=== PATIENT | female | born 1965 | race American Indian/Alaskan Native ===

== ENCOUNTER 2018-07-10 17:04 | Emergency (ER) | payer OTHER ==
--- NOTE | 2018-07-10 17:34 | Emergency Department Report ---
ED Allergic Reaction HPI - General Stated complaint: ALLERGIC REACTION Time Seen by Provider: 07/10/18 17:30 Source: patient Mode of arrival: Ambulatory Limitations: No Limitations - History of Present Illness Initial Comments: Patient is a 53-year-old female that presents emergency room with the complaints of itching and shortness of breath and difficulty swallowing. Patient states she was at her [employer] office and was getting an allergy test and began to have an reaction. Patient states the allergies gave her 30 mg Decadron and 0.3 of epinephrine and topical Benadryl in the office. Patient states her symptoms are improving. Patient at this time is denying shortness of breath and itching. Patient states most of her symptoms have resolved with the treatment ENT but she wanted to come here and be evaluated. Patient denies chest pain and fever and chills. MD Complaint: allergic reaction, hives -: Sudden Symptoms: itching, difficulty swallowing, difficulty breathing Severity: moderate Treatment Prior to Arrival: benadryl, epinephrine, steroids Previous Allergy History: none - Related Data Previous Rx's Medication Instructions Recorded Last Taken Type methylPREDNISolone [Medrol 4MG 4 mg PO DAILY 6 Days #1 tab.ds.pk 07/10/18 Unknown Rx DOSEPAK (21 tabs)] Allergies Allergy/AdvReac Type Severity Reaction Status Date / Time latex AdvReac Rash Verified 07/10/18 18:45 ED Review of Systems ROS: Stated complaint: ALLERGIC REACTION Other details as noted in HPI Constitutional: denies: chills, fever Eyes: denies: eye pain, eye discharge, vision change ENT: throat pain. denies: ear pain Respiratory: shortness of breath. denies: cough, wheezing Cardiovascular: denies: chest pain, palpitations Endocrine: no symptoms reported Gastrointestinal: denies: abdominal pain, nausea, diarrhea Genitourinary: denies: urgency, dysuria, discharge Musculoskeletal: denies: back pain, joint swelling, arthralgia Skin: pruritus. denies: lesions Neurological: denies: headache, weakness, paresthesias Psychiatric: denies: anxiety, depression Hematological/Lymphatic: denies: easy bleeding, easy bruising ED Past Medical Hx - Past Medical History Previous Medical History?: Yes Hx Asthma: Yes Additional medical history: asthma and allergies - Surgical History Past Surgical History?: No - Family History Family history: no significant - Social History Smoking Status: Never Smoker Substance Use Type: None - Medications Home Medications: Home Medications Medication Instructions Recorded Confirmed Last Taken Type methylPREDNISolone [Medrol 4MG 4 mg PO DAILY 6 Days #1 tab.ds.pk 07/10/18 Unknown Rx DOSEPAK (21 tabs)] ED Physical Exam - General Limitations: No Limitations General appearance: alert, in no apparent distress - Head Head exam: Present: atraumatic, normocephalic - Eye Eye exam: Present: normal appearance, PERRL Pupils: Present: normal accommodation - ENT ENT exam: Present: mucous membranes moist - Neck Neck exam: Present: normal inspection. Absent: tenderness, meningismus - Respiratory Respiratory exam: Present: normal lung sounds bilaterally. Absent: respiratory distress, wheezes, rales, rhonchi, stridor, chest wall tenderness, accessory muscle use, decreased breath sounds, prolonged expiratory - Cardiovascular Cardiovascular Exam: Present: regular rate, normal rhythm. Absent: systolic murmur, diastolic murmur, rubs, gallop - GI/Abdominal GI/Abdominal exam: Present: soft, normal bowel sounds. Absent: distended, tenderness, guarding - Extremities Exam Extremities exam: Present: normal inspection - Back Exam Back exam: Present: normal inspection - Neurological Exam Neurological exam: Present: alert, oriented X3 - Psychiatric Psychiatric exam: Present: normal affect, normal mood - Skin Skin exam: Present: warm, dry, intact, normal color. Absent: rash ED Course Vital Signs 07/10/18 17:45 Temperature 98.1 F Pulse Rate 89 Respiratory 18 Rate Blood Pressure 130/74 Blood Pressure 130/76 [Right] O2 Sat by Pulse 100 Oximetry - Reevaluation(s) Reevaluation #1: Patient will be given Pepcid and Benadryl and reassessed. 07/10/18 18:05 Patient states she is feeling back to baseline 07/10/18 19:58 Patient states she is feeling back to normal. Discussed all findings with patient. Patient will be discharged home. Patient given discharge instructions. Patient voiced understanding of discharge instructions. Patient agrees to plan of care. 07/10/18 20:44 ED Medical Decision Making - Medical Decision Making Patient is a 53-year-old female that presents emergency room from her [employer] [facility] office for allergic reaction. Patient was given Decadron and epinephrine at the [facility] office. Patient responded well to therapy. Patient was given Pepcid and Benadryl in the ER. Patient returned to baseline. Patient will be given a Medrol Dosepak. She was observed for sufficient amount of time in order to allow patient to return to baseline and all symptoms to resolve. Patient left the ER asymptomatic. - Differential Diagnosis allergic reaction Critical Care Time: Yes Critical care attestation.: If time is entered above; I have spent that time in minutes in the direct care of this critically ill patient, excluding procedure time. Critical Care Time: 35 minutes ED Disposition Clinical Impression: SOB (shortness of breath), Generalized pruritus Allergic reaction Qualifiers: Encounter type: initial encounter Qualified Code(s): T78.40XA - Allergy, unspecified, initial encounter Disposition: TO HOME OR SELFCARE Is pt being admited?: No Does the pt Need Aspirin: No Condition: Stable Instructions: Food Allergy (ED), Allergies (ED) Additional Instructions: Patient to follow-up with primary care in 2-3 days. Patient to follow-up with her [employer] in 2-3 days. Patient to take Tylenol or ibuprofen when necessary for pain. Patient to return to ER if condition worsens. Patient to take meds as directed. Patient to increase water. Patient to rest. Patient to continue all meds. Prescriptions: methylPREDNISolone [Medrol 4MG DOSEPAK (21 tabs)] 4 mg PO DAILY 6 Days #1 tab.ds.pk Referrals: APRIL RODRIGUEZ MD [Primary Care Provider] - 2-3 Days Time of Disposition: 20:49
[2018-07-10 17:53] VITALS: BP 130/74
[2018-07-10] MEDS ORDERED: BENADRYL IV ONE (18:04)
[2018-07-10] MEDS ORDERED: PEPCID IV ONE (18:04)
[2018-07-10] MEDS ORDERED: NACL 0.9% 1000 ML 1,000 ML ONE (18:38)
[2018-07-10] MEDS ORDERED: NACL 0.9% 1000 ML 1,000 ML IV ONE (18:46)
== END 2018-07-10 21:12 | disposition home or self-care (01) ==
LOC: ED 17:04
DX: T78.40XA Allergy, unspecified, initial encounter (principal); J45.909 Unspecified asthma, uncomplicated; Z91.040 Latex allergy status; X58.XXXA Exposure to other specified factors, initial encounter
CPT/HCPCS: 96374; 96375; 99283; J1200; J7030